=== PATIENT | female | born 1960 | race Caucasian/White ===

== ENCOUNTER → 2017-01-24 | Outpatient (CLI) | payer BC ==
[~2017-01-24] MED LIST: ADVAIR 250-501 EACH IH; ALBUTEROL17 GM INH; ALBUTEROL20 ml INH; AMOXICILLIN875 MG PO; ASPIRIN81 M1 PO; BROMPHED DM PO; CLARITIN10 MG PO; DEXILANT30 MG PO; GLUCOPHAGE500 M1 PO; LOTREL PO; MUCINEX FAST-M1 EAC6; PLAVIX PO; PREDNISONE PO
--- NOTE | ~2017-01-24 | CT4 ---
[facility] A Service of [facility] RADIOLOGY TEXT RESULTS PATIENT: SAMIA TALLEY LOCATION: [facility] : 56 UNIT #: [id number] AGE: [address]: NOHEMY PEREZ MD SEX: F ORDER DR: [id number] [address] [address] [id number] MR#: [id number] Acc #: [id number] NAME: SAMIA TALLEY : 1960 SEX: F STUDY DATE/TIME: 01/24/2017 14:36 UNIT: [facility] ROOM: STUDY DESCRIPTION: CT Abd and Pelv Wo Cont Attending Physician: Nohemy Perez M.D. Referring Physician: Nohemy Perez M.D. Ordering Physician: Staff Doctor Not On Primary Care Physician: Nohemy Perez M.D. MEDICAL IMAGING REPORT This report is preliminary unless electronic signature is present. EXAM Abdomen and pelvis CT without contrast HISTORY Low back pain accompanied by hematuria for the past 2 days. TECHNIQUE Axial images were obtained without contrast. This CT exam was performed with one or more of the following radiation dose reduction techniques: automatic control, adjustment of mA and/or kV according to patient size, and iterative reconstruction. FINDINGS The liver shows mild fatty infiltration. Postoperative changes of lap band surgery are noted. There is a small sliding hiatal hernia. Spleen and pancreas are normal in size. There is a nonobstructing 2 x 5 mm kidney stone in the mid portion of the left kidney. No right sided calcifications are seen. The ureters are nondilated on both sides. No ureteral stones are seen on either side. No bladder stones are seen. There is no evidence of retroperitoneal adenopathy or ascites and no distended bowel loops are seen. Normal appendix. Diverticulosis is seen without evidence of diverticulitis. Advanced degenerative disc disease is seen at L3-4 and L5-S1. IMPRESSION 1. Nonobstructing 2 x 5 mm left kidney stone. 2. No evidence of hydronephrosis or ureteral stone. 3. Mildly fatty liver. 4. Previous lap band surgery with a small hiatal hernia. 5. Diverticulosis. [facility] A Service of [facility] & [facility] RADIOLOGY TEXT RESULTS PATIENT: SAMIA TALLEY LOCATION: [facility] : 56 UNIT #: [id number] AGE: [address]: NOHEMY PEREZ MD SEX: F ORDER DR: Dictated by... Fox Lloyd M.D. THIS IS AN ELECTRONICALLY VERIFIED REPORT Fox Lloyd M.D. at 01/25/2017 7:11 AM LUANN/jonathan TD: 01/24/2017 16:43 JOB #: [id number] MEDICAL IMAGING REPORT Page 1 of 1
== END | disposition home or self-care (01) ==
LOC: SCT 14:28
DX: R31.9 Hematuria, unspecified (principal); N20.0 Calculus of kidney; K76.0 Fatty (change of) liver, not elsewhere classified; K44.9 Diaphragmatic hernia without obstruction or gangrene; K57.90 Diverticulosis of intestine, part unspecified, without perforation or abscess without bleeding; Z98.84 Bariatric surgery status
CPT/HCPCS: 74176